=== PATIENT | female | born 1985 | race Hispanic/Latino ===

== ENCOUNTER 2018-12-15 05:47 | Inpatient (IN) | payer MEDICAID ==
[2018-12-15] MEDS ORDERED: REGLAN IV ONE (06:36)
[2018-12-15] MEDS ORDERED: PEPCID IV ONE (06:36)
[2018-12-15] MEDS ORDERED: BICITRA PO ONE (06:36)
[2018-12-15] MEDS ORDERED: LACTATED RINGERS 1,000 ML ONE ×2 (06:36→07:50)
[2018-12-15 06:52] LABS: Hematocrit 33.2 % (30.3-42.9); Mean Corpuscular HGB Conc 33 % (30-34); Mean Corpuscular Volume 83 fl (79-97); Platelet Count 296 K/mm3 (140-440); Red Blood Count 4.01 M/mm3 (3.65-5.03); Red Cell Distribution Width 15.1 % (13.2-15.2)
[2018-12-15] MEDS ORDERED: PITOCin/NS 20 UNIT/1000ML DRIP 20 UNITS/1,000 ML BAG IV SCH ×2 (07:00→10:45)
[2018-12-15] MEDS ORDERED: LACTATED RINGERS 1,000 ML IV SCH ×2 (07:00→15:00)
--- NOTE | 2018-12-15 07:16 | Anesthesia Day of Surgery ---
Anesthesia Day of Surgery - Day of Surgery Patient Examined: Yes Patient H&P Reviewed: Yes Patient is NPO: Yes Beta Blockers: No Cardiac Clearance: No Pulmonary Clearance: No Mundo's Test: N/A
--- NOTE | 2018-12-15 07:18 | Anesthesia Consultation ---
Anesthesia Consult and Med Hx - Airway Anesthetic Teeth Evaluation: Good ROM Head & Neck: Adequate Mental/Hyoid Distance: Adequate Mallampati Class: Class I Intubation Access Assessment: Good - Pulmonary Exam CTA: Yes - Cardiac Exam Cardiac Exam: RRR - Pre-Operative Health Status ASA Pre-Surgery Classification: ASA2 Proposed Anesthetic Plan: Spinal - Pulmonary Hx Smoking: No Hx Asthma: No - Cardiovascular System Hx Hypertension: No - Central Nervous System Hx Seizures: No Hx Psychiatric Problems: No - Endocrine Hx Renal Disease: No Hx Hypothyroidism: No Hx Hyperthyroidism: No - Hematic Hx Anemia: No Hx Sickle Cell Disease: No - Other Systems Hx Alcohol Use: No
[2018-12-15] MEDS ORDERED: ZOFRAN ONE (07:49)
[2018-12-15] MEDS ORDERED: ASTRAMORPH PF 10MG/10ML ONE (07:52)
[2018-12-15] MEDS ORDERED: BENADRYL IV PRN (08:00)
[2018-12-15] MEDS ORDERED: SODIUM CHLORIDE FLUSH SYRINGE 10 ML IV PRN (08:00)
[2018-12-15] MEDS ORDERED: NACL 0.9% IR ONE (08:00)
[2018-12-15] MEDS ORDERED: ZOFRAN IV PRN ×2 (08:00→10:45)
[2018-12-15] MEDS ORDERED: PHENERGAN PO PRN (08:00)
[2018-12-15] MEDS ORDERED: NARCAN 0.4 MG/1 ML IV PRN ×2 (08:00→10:45)
[2018-12-15] MEDS ORDERED: PHENERGAN PR PRN (08:00)
[2018-12-15] MEDS ORDERED: WATER FOR IRRIG STERILE IR ONE (08:00)
--- NOTE | 2018-12-15 09:30 | History and Physical Report ---
History of Present Illness Date of examination: 12/15/18 Date of admission: 12/15/18 05:47 Chief complaint: I'm here for my History of present illness: Patient is a 33-year-old 1 para 0 who presents today for an elective primary section due to complete placenta previa diagnosed at approximately 22 weeks which did not resolve. Her course was also complicated by gestational diabetes which was controlled by diet. Her EDC is 12/23/2018 Past History Past Medical History: no pertinent history Past Surgical History: no surgical history Social history: single - Obstetrical History Expected Date of Delivery: 12/23/18 Actual Gestation: 38 Week(s) 6 Day(s) : 1 Medications and Allergies Allergies Allergy/AdvReac Type Severity Reaction Status Date / Time No Known Allergies Allergy Unverified 12/15/18 06:35 Active Meds: Active Medications Diphenhydramine HCl (Benadryl) 12.5 mg IV Q2H PRN PRN Reason: Itching Lactated Ringer's (Lactated Ringers) 1,000 mls @ 2,250 mls/hr IV PREOP JOHN Stop: 12/16/18 07:27 Last Admin: 12/15/18 07:07 Dose: 2,250 mls/hr Documented by: Oxytocin/Sodium Chloride (Pitocin/Ns 20 Unit/1000ml Drip) 20 units in 1,000 mls @ 0 mls/hr IV TITR JOHN Naloxone HCl (Narcan 0.4 Mg/1 Ml) 0.2 mg IV Q2MIN PRN PRN Reason: Res Rate </= 8 or 02 SAT < 92% Ondansetron HCl (Zofran) 4 mg IV Q8H PRN PRN Reason: Nausea And Vomiting Pneumococcal Polyvalent Vaccine (Pneumovax 23) 0.5 ml IM .ONCE ONE Stop: 12/15/18 12:01 Promethazine HCl (Phenergan) 25 mg PO Q6H PRN PRN Reason: Nausea And Vomiting Promethazine HCl (Phenergan) 25 mg [place] Q6H PRN PRN Reason: Nausea And Vomiting Sodium Chloride (Sodium Chloride Flush Syringe 10 Ml) 10 ml IV PRN PRN PRN Reason: flush Review of Systems All systems: negative Constitutional: weight gain Eyes: deferred Genitourinary: other (vaginal pressure) - Vital Signs Vital signs: Vital Signs Pulse BP 93 H 125/74 12/15/18 06:40 12/15/18 06:40 Temp Pulse Resp BP Pulse Ox 93 H 16 125/74 12/15/18 06:43 12/15/18 06:43 12/15/18 06:43 - Physical Exam Breasts: Positive: deferred Cardiovascular: Regular rate, Normal S1, Normal S2 Lungs: Positive: Clear to auscultation, Normal air movement Abdomen: Positive: normal appearance, soft, normal bowel sounds Genitourinary (Female): Positive: normal external genitalia, normal perenium Uterus: Positive: normal size, normal contour Extremities: Positive: normal Deep Tendon Reflex Grade: Normal +2 - Obstetrical FHR: auscultation normal Results Result Diagrams: 12/15/18 06:10 Abnormal lab results 12/15/18 Range/Units 06:10 MCH 27 L (28-32) pg All other labs normal. Assessment and Plan Patient here for elective primary . We'll admit and provide medications as ordered. All consents have been signed and placed on the chart. We'll now proceed with .
--- NOTE | 2018-12-15 09:34 | Procedure Note ---
OB Delivery Note - Delivery Date of Delivery: 12/15/18 Surgeon: CONOR GRANADO Estimated blood loss: other (850) - Section Preop diagnosis: other (placenta previa) Postop diagnosis: same section procedure: primary low transverse Disposition: PACU Complications: none Narrative: see op report - A at 1 minute: 8 at 5 minutes: 9 Infant Gender: Male (3823 grams/ 8 pounds 7 ounces)
--- NOTE | 2018-12-15 09:48 | Operative Report ---
Operative Report Operative Report: The operative report for patient Tiana Lau Date of service 12/15/2018 Preoperative diagnosis: Intrauterine at 38-6/7 weeks 2. Complete placenta previa 3. Gestational diabetes Postoperative diagnosis: Same Procedure: Primary low transverse section Surgeon: Dr. Crystal Haley EBL: 850 Urine output: 850 IV fluids: 2100 mL Findings: Viable male in the vertex occiput anterior position. Weight 8 lbs. 7 oz. 3823 g Apgars 8 and 9]. Otherwise normal pelvic anatomy Specimens: Placenta sent to pathology Complications: None Procedure: The patient was admitted to the OR with IV running and in place. She was properly identified as herself. Her spinal was placed in the operating room without difficulty. She was placed in the dorsal supine position with a leftward tilt. A Hinton catheter was inserted. She was then prepped and draped in the normal sterile fashion. An Allis test was used to confirm adequate anesthesia. Once confirmed, the incision was made with the scalpel and carried to the underlying fascia using the scalpel and the Bovie. The fascia was incised in the midline and incision was extended bilaterally using the curved Godoy scissors. The fascia was then dissected from the underlying rectus muscles in a series of sharp and blunt dissection using the Godoy scissors. Muscles were in the in the midline sharply using Metzenbaum scissors and the peritoneum was entered into bluntly using the surgeon's fingers. The Luis Miguel retractor was then inserted into the incision. Following this the bladder flap was created. Hysterotomy incision was then made in the scalpel. Upon uterine entry, the amniotic sac was ruptured for clear fluid. The infant was then delivered in the occiput anterior position. His mouth and nose were suctioned on the field. The cord was clamped and cut and he was handed to the waiting NICU personnel. The placenta was delivered manually and taken off the field. The uterus was then exteriorized and cleared of all clots and debris. The hysterotomy incision was then closed in a running locked fashion using 0 Vicryl. The abdomen was then copiously irrigated with warm normal saline. Following this the uterus was replaced into the abdominal cavity. At this point the muscles were reapproximated in the midline using individual sutures of 0 Vicryl. Following this the fascia was closed in a running fashion using 0 Vicryl. Tissue was then copiously irrigated. A retention suture was placed in the subcuticular fat. Skin was closed in a running fashion using 3-0 Monocryl. The sponge lap needle and instrument counts were correct 2. The patient tolerated the procedure well. She was taken to recovery in stable condition.
[2018-12-15] MEDS ORDERED: SODIUM CHLORIDE FLUSH SYRINGE 10 ML IV NR (10:45)
[2018-12-15] MEDS ORDERED: MYLICON PO PRN (10:45)
[2018-12-15] MEDS ORDERED: TORADOL IV PRN (10:45)
[2018-12-15] MEDS ORDERED: MILK OF MAGNESIA PO PRN (10:45)
[2018-12-15] MEDS ORDERED: TUCKS PAD TP PRN (10:45)
[2018-12-15] MEDS ORDERED: MORPHINE IV PRN (10:45)
[2018-12-15] MEDS ORDERED: LANSINOH TP PRN (10:45)
[2018-12-15] MEDS ORDERED: PNEUMOVAX 23 IM ONE (12:00)
[2018-12-15 22:05] LABS: Hematocrit 26.2 % (30.3-42.9); Hemoglobin 8.6 gm/dl (10.1-14.3)
[2018-12-16] MEDS: PERCOCET 5/325 PO PRN ×3 (00:09→21:32)
[2018-12-16] MEDS: IBUPROFEN PO PRN ×3 (00:10→17:10)
[2018-12-16] MEDS: FEOSOL PO SCH (09:00)
[2018-12-16] MEDS: PRENATAL VITAMIN PO SCH (09:00)
--- NOTE | 2018-12-16 19:32 | Progress Note ---
Assessment and Plan PPD 1 s/p primary for placenta previa. Doing well. Pain well controlled. Plan for discharge on tomorrow. Subjective - Subjective Date of service: 12/16/18 Interval history: Patient is a 33-year-old 1 para 0 who presents today for an elective primary section due to complete placenta previa diagnosed at approximately 22 weeks which did not resolve. Her course was also complicated by gestational diabetes which was controlled by diet. Her EDC is 12/23/2018 Patient reports: appetite normal, voiding normally, pain well controlled, flatus, ambulating normally [place]: doing well Objective - Vital Signs Latest vital signs: Vital Signs Temp Pulse Resp BP BP Pulse Ox 12/16/18 15:39 98.4 F 111 H 18 101/69 96 12/16/18 09:31 98.8 F 110 H 18 105/63 94 12/16/18 00:00 98.2 F 99 H 20 113/68 12/15/18 20:05 98.2 F 98 H 20 105/62 Intake and Output 12/16/18 12/16/18 12/16/18 06:59 14:59 22:59 Intake Total 240 960 480 Output Total 850 Balance -610 960 480 Intake: Oral 240 240 120 Intake, Free Water 720 360 Output: Urine 850 Void 850 Other: Total, Intake Amount 240 240 120 Total, Output Amount 600 # Voids Void 3 - Exam Breasts: Present: deferred Cardiovascular: Present: Regular rate, Normal S1, Normal S2 Lungs: Present: Clear to auscultation, Normal air movement Abdomen: Present: normal appearance, soft Vulva: both: normal Uterus: Present: normal, firm, fundal height below umbilicus Extremities: Present: normal Incision: Present: normal, dry, intact - Labs Labs: Abnormal lab results 12/15/18 Range/Units 21:52 Hgb 8.6 L (10.1-14.3) gm/dl Hct 26.2 L D (30.3-42.9) %
--- NOTE | 2018-12-16 19:37 | Discharge Summary ---
Providers - Providers Date of Admission: 12/15/18 05:47 Date of discharge: 12/17/18 Attending physician: CONOR GRANADO Primary care physician: CONOR GRANADO Hospitalization Reason for admission: section (for placenta previa) Delivery: Procedure: primary low transverse Incision: normal, dry, intact Other procedures: none complications: transfusion Discharge diagnosis: IUP at term delivered [place] baby: female Hospital course: unremarkable Condition at discharge: Good Disposition: DC- TO HOME OR SELFCARE Plan - Discharge Medications Prescriptions: Docusate Sodium [Colace] 100 mg PO BID PRN #60 capsule PRN Reason: Constipation Ferrous Sulfate [Feosol 325 MG tab] 325 mg PO BID #60 tablet Ibuprofen [Motrin] 800 mg PO Q8HR PRN #40 tablet PRN Reason: Pain, Mild (1-3) Oxycodone HCl/Acetaminophen [Percocet 7.5/325 mg] 1 each PO Q6HR PRN #40 tablet PRN Reason: Pain - Provider Discharge Summary Activity: routine, no sex for 6 weeks, no heavy lifting 4 weeks, no strenuous exercise Diet: routine Instructions: routine Additional instructions: [] Smoking cessation referral if applicable(refer to patient education folder for contact #) [] Refer to [facility]'s [facility] Booklet Call your doctor immediately for: * Fever > 100.5 * Heavy vaginal bleeding ( >1 pad per hour) * Severe persistent headache * Shortness of breath * Reddened, hot, painful area to leg or breast * Drainage or odor from incision. * Keep incision clean and dry at all times and follow doctor's instructions re garding bathing/showering - Follow up plan Follow up: CONOR GRANADO MD [Primary Care Provider] - 14 Days
[2018-12-17] MEDS: PERCOCET 5/325 PO PRN ×2 (06:29→13:14)
[2018-12-17] MEDS: IBUPROFEN PO PRN ×2 (06:30→13:15)
[2018-12-17] MEDS: FEOSOL PO SCH (13:14)
[2018-12-17] MEDS: PRENATAL VITAMIN PO SCH (13:14)
[2018-12-17 17:33] VITALS: BP 123/84
== END 2018-12-17 17:45 | disposition home or self-care (01) | DRG 765 ==
LOC: APU 05:47 → OB 10:22
PROVIDERS: ADMIT Obstetrics & Gynecology; ATTEND Obstetrics & Gynecology
PROC: 10D00Z1 Extraction of Products of Conception, Low, Open Approach (ICD-10-PCS; principal; 2018-12-15)
PROC: 3E0234Z Introduction of Serum, Toxoid and Vaccine into Muscle, Percutaneous Approach (ICD-10-PCS; 2018-12-15)
DX: O24.429 Gestational diabetes mellitus in childbirth, unspecified control (principal); O44.03 Complete placenta previa NOS or without hemorrhage, third trimester; D62 Acute posthemorrhagic anemia; Z3A.38 38 weeks gestation of pregnancy; Z37.0 Single live birth; Z23 Encounter for immunization
CPT/HCPCS: 36415; 82962; 85014; 85018; 85027; 86592; 86850; 86900; 86901; 88307; 90732; G0378; J1885; J2274; J2405; J2590; J2765; J7120